=== PATIENT | male | born 1990 | race Hispanic/Latino ===

== ENCOUNTER 2018-03-20 06:43 | Day surgery (SDC) | payer BC ==
[~2018-03-20] VITALS: Ht 177.8 cm; Wt 106.3 kg
[~2018-03-20 06:43] MED LIST: ATOR40TA71 PO; FISH1CAP49 PO; LOSA50TA37 PO; SODIUM CHLORIDE 0.9% 1000ML 1,000 ML IV ONE
[2018-03-20 07:01] VITALS: BP 137/81
[2018-03-20] MEDS ORDERED: LOSA25TA21 PO (07:37)
[2018-03-20] MEDS ORDERED: BISA-46 PO (07:37)
[2018-03-20] MEDS ORDERED: HYDR30CR77 RC (07:37)
[2018-03-20] MEDS ORDERED: ATOR20TA65 PO (07:37)
[2018-03-20] MEDS ORDERED: FENTANYL CITRATE PF 50 MCG/1 ML 2ML VIAL ONE (09:05)
[2018-03-20] MEDS ORDERED: PROPOFOL 10 MG/ML 20ML VIAL IV ONE ×2 (09:05→09:27)
[2018-03-20 09:34] VITALS: BP 70/31
== END 2018-03-20 10:10 | disposition home or self-care (01) ==
LOC: ENDO 06:43 → DAH 06:43 → ENDO 10:10
PROVIDERS: ATTEND Internal Medicine Gastroenterology
DX: K52.9 Noninfective gastroenteritis and colitis, unspecified (principal); K62.89 Other specified diseases of anus and rectum; K29.50 Unspecified chronic gastritis without bleeding; K21.0 Gastro-esophageal reflux disease with esophagitis; K29.80 Duodenitis without bleeding; E78.5 Hyperlipidemia, unspecified; I10 Essential (primary) hypertension; Z79.899 Other long term (current) drug therapy; Z98.890 Other specified postprocedural states
CPT/HCPCS: 45380; 43239; A4606; J2704 ×2; J3010; J7030